=== PATIENT | male | born 1965 | race African-American/Black ===

== ENCOUNTER 2021-06-08 15:12 | Emergency (ER) | payer OTHER ==
[~2021-06-08] VITALS: Ht 188 cm; Wt 104.7 kg
[2021-06-08 15:27] VITALS: BP 175/100
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
[2021-06-08] MEDS ORDERED: HYDROcodone/APAP 5/325MG 1 TAB TABLET PO ONE (18:00)
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
== END 2021-06-08 19:05 | disposition home or self-care (01) ==
LOC: ER 15:12
DX: R51.9 Headache, unspecified (principal); M54.2 Cervicalgia; I10 Essential (primary) hypertension; F17.200 Nicotine dependence, unspecified, uncomplicated; G89.11 Acute pain due to trauma; V49.09XA Driver injured in collision with other motor vehicles in nontraffic accident, initial encounter; Y93.89 Activity, other specified; Y92.488 Other paved roadways as the place of occurrence of the external cause; Y99.8 Other external cause status
CPT/HCPCS: 70450; 72125; 99284-25